=== PATIENT | male | born 1960 | race Caucasian/White ===

== ENCOUNTER → 2017-04-12 | Outpatient (CLI) | payer BC ==
[2017-04-12 08:50] LABS: Basophils % (A) 1 %; CHCM 35.5; Eosinophils # (A) 0.1 k/uL (0-0.7); Eosinophils % (A) 3 %; HCT 49.9 % (39.0-53.0); HDW 2.89; HGB 17.1 gm/dL (13.0-17.5); Luc # (Auto) 0.16; Luc % (Auto) 3; Lymphocytes # (A) 1.2 k/uL (1.0-4.8); Lymphocytes % (A) 25 %; MCH 32.1 pg (25.0-35.0); MCHC 34.4 g/dL (31.0-37.0); MCV 93.5 fL (80.0-100.0); Mean Platelet Volume 7.5; Monocytes # (A) 0.4 k/uL (0-1.0); Monocytes % (A) 8 %; Neutrophils # (A) 2.9 k/uL (1.3-7.7); Neutrophils % (A) 61 %; RBC 5.33 m/uL (4.30-5.90); RDW 12.5 % (11.5-15.5); WBC 4.8 k/uL (3.8-10.6); WBC (Perox) 4.66
[2017-04-12 08:57] LABS: ALT 96 U/L (21-72); AST 68 U/L (17-59); Alkaline Phosphatase 69 U/L (38-126); Anion Gap 12 mmol/L; Blood Urea Nitrogen 9 mg/dL (9-20); Calcium 9.5 mg/dL (8.4-10.2); Carbon Dioxide 27 mmol/L (22-30); Chloride 102 mmol/L (98-107); Glucose 115 mg/dL (74-99); Non-African American GFR(MDRD) >60 (>60 ml/min/1.73 sqM); Potassium 4.4 mmol/L (3.5-5.1); Sodium 141 mmol/L (137-145); Total Bilirubin 1.2 mg/dL (0.2-1.3); Total Protein 7.2 g/dL (6.3-8.2)
== END | disposition home or self-care (01) ==
LOC: LABWHC1 07:05
PROVIDERS: ATTEND Family Medicine
DX: E11.9 Type 2 diabetes mellitus without complications (principal); I10 Essential (primary) hypertension; H81.399 Other peripheral vertigo, unspecified ear
CPT/HCPCS: 36415; 80053; 84439; 84443; 85025

== ENCOUNTER 2020-10-19 08:03 | Day surgery (SDC) | payer BC, MEDICARE ==
[2020-10-16 15:39] VITALS: BMI 29.8
[~2020-10-19 08:03] MED LIST: LACTATED RINGERS 1,000 ML IV SCH
[2020-10-19 08:42] VITALS: TEMP 97.9
[2020-10-19 08:49] LABS: Glucose,Whole Blood 105 mg/dL (75-99)
[2020-10-19] MEDS ORDERED: LACTATED RINGERS 1,000 ML IV ONE (08:51)
[2020-10-19] MEDS ORDERED: LIDOCAINE 1% (10MG/ML) FOR IV START INTRADERMA ONE (08:52)
[2020-10-19] MEDS ORDERED: PROPOFOL 10 MG/ML 20 ML VIAL IV ONE (09:16)
--- NOTE | 2020-10-19 09:36 | P.GSHP ---
History of Present Illness H&P Date: 10/19/20 Chief Complaint: Screening colonoscopy This 60-year-old male who presents today for screening colonoscopy. Patient denies a significant GI complaints. Past Medical History Past Medical History: Diabetes Mellitus, Hypertension Additional Past Medical History / Comment(s): received both covid vaccines History of Any Multi-Drug Resistant Organisms: None Reported Additional Past Surgical History / Comment(s): rt orbital procedure Past Anesthesia/Blood Transfusion Reactions: No Reported Reaction Smoking Status: Former smoker - Past Family History Mother Family Medical History: No Reported History Medications and Allergies Home Medications Medication Instructions Recorded Confirmed Type ALPRAZolam [Xanax] 0.25 mg PO Q8HR PRN 10/16/20 10/16/20 History Ascorbic Acid [Vitamin C] 1,000 mg PO BID 10/16/20 10/16/20 History Cetirizine HCl [Zyrtec] 10 mg PO DAILY 10/16/20 10/16/20 History Cinnamon Bark [Cinnamon] 1,000 mg PO DAILY 10/16/20 10/16/20 History Cyclobenzaprine [Flexeril] 10 mg PO TID PRN 10/16/20 10/16/20 History Ibuprofen 800 mg PO Q8H PRN 10/16/20 10/16/20 History Losartan Potassium 50 mg PO QAM 10/16/20 10/16/20 History Multivit-Min/FA/Lycopen/Lutein 1 each PO DAILY 10/16/20 10/16/20 History [Centrum Silver Men Tablet] metFORMIN HCL [Glucophage] 500 mg PO BID 10/16/20 10/16/20 History Allergies Allergy/AdvReac Type Severity Reaction Status Date / Time No Known Allergies Allergy Verified 10/16/20 15:29 Surgical - Exam Vital Signs Temp Pulse Resp BP Pulse Ox 97.9 F 89 18 173/90 97 10/19/20 08:41 10/19/20 08:41 10/19/20 08:41 10/19/20 08:41 10/19/20 08:41 - General well developed, well nourished, no distress - Eyes PERRL - ENT normal pinna - Neck no masses - Respiratory normal expansion - Cardiovascular Rhythm: regular - Abdomen Abdomen: soft, non tender Results - Labs Abnormal Lab Results - Last 24 Hours (Table) 10/19/20 Range/Units 08:48 POC Glucose (mg/dL) 105 H (75-99) mg/dL Assessment and Plan Assessment: We'll perform screening colonoscopy
[2020-10-19 09:38] VITALS: RESP 16
--- NOTE | 2020-10-19 09:38 | P.OP ---
Date of Procedure: 10/19/20 Preoperative Diagnosis: Screening colonoscopy Postoperative Diagnosis: Mild diverticulosis Procedure(s) Performed: Colonoscopy Anesthesia: MAC Surgeon: Hakeem Lackey Pathology: none sent Condition: stable Disposition: PACU Description of Procedure: The patient's placed on the endoscopy table in the lateral position. He received IV sedation. Digital rectal exam was performed which revealed no abnormalities. The flexible colonoscope was then placed patient anus passed throughout the entire colon. The ileocecal valve was visualized. Cecum, ascending and transverse colon appeared normal. In the descending and sigmoid colon there was mild scattered diverticulosis. Scope was then brought back the rectum and this appeared normal. Scope was withdrawn for patient.
[2020-10-19 09:56] VITALS: BP 131/82; PULSE 90
== END 2020-10-19 10:10 | disposition home or self-care (01) ==
LOC: ORWHC2ENDO 08:03
PROVIDERS: ATTEND Surgery
DX: Z12.11 Encounter for screening for malignant neoplasm of colon (principal); K57.30 Diverticulosis of large intestine without perforation or abscess without bleeding; I10 Essential (primary) hypertension; E11.9 Type 2 diabetes mellitus without complications; Z87.891 Personal history of nicotine dependence; Z79.84 Long term (current) use of oral hypoglycemic drugs; Z79.899 Other long term (current) drug therapy
CPT/HCPCS: J2704; G0121; 45378

== ENCOUNTER → 2024-05-18 | Outpatient (CLI) | payer MEDICARE ==
--- NOTE | 2024-05-18 08:32 | US ---
EXAMINATION TYPE: US Aorta Screening DATE OF EXAM: 05/18/2024 COMPARISON: NONE CLINICAL INDICATION: Male, 64 years old with history of Z87.891 [employer]MER [employer]MO[employer]; AAA screening TECHNIQUE: Multiple sonographic images of the abdominal aorta are obtained with grayscale and color a nd spectral Doppler imaging. with grayscale and color Doppler imaging FINDINGS: EXAM MEASUREMENTS: Abdominal Aorta: Proximal: 2.7 x 2.6 cm Mid: 1.6 x 1.9 cm Distal: 1.5 x 1.9 cm Bifurcation: Right Iliac: 1.1 x 1.4 cm Left Iliac: 1.1 x 1.3 cm IMPRESSION: No evidence for aortic aneurysm. [facility], , 05/18/2024 8:29 AM
== END | disposition home or self-care (01) ==
LOC: RADUSWWP 06:44
PROVIDERS: ATTEND Family Medicine
DX: Z13.6 Encounter for screening for cardiovascular disorders (principal); Z00.00 Encounter for general adult medical examination without abnormal findings; Z87.891 Personal history of nicotine dependence
CPT/HCPCS: 76706